=== PATIENT | male | born 1995 | race Caucasian/White ===

== ENCOUNTER 2020-06-28 11:58 | Day surgery (SDC) | payer OTHER ==
[2020-06-24 11:16] LABS: HEMATOCRIT 42.9 % (37.9-51.0); HEMOGLOBIN 14.6 g/dL (13.5-17.0); MEAN CORPUSCULAR HEMOGLOBIN 29.9 pg (27.0-33.4); MEAN CORPUSCULAR VOLUME 88 fl (80-97); PLATELET COUNT 240 10^3/uL (150-450); RED BLOOD COUNT 4.87 10^6/uL (4.35-5.55); RED CELL DISTRIBUTION WIDTH 13.1 % (11.5-14.0)
[2020-06-24 11:21] LABS: APPEARANCE,URINE CLEAR; BILIRUBIN,URINE NEGATIVE (NEGATIVE); COLOR,URINE STRAW; GLUCOSE, URINE NEGATIVE (NEGATIVE); KETONES,URINE NEGATIVE (NEGATIVE); LEUKOCYTE ESTERASE,URINE NEGATIVE (NEGATIVE); NITRITE,URINE NEGATIVE (NEGATIVE); PROTEIN,URINE NEGATIVE (NEGATIVE); URINE SPECIFIC GRAVITY 1.004; UROBILINOGEN,URINE NEGATIVE mg/dL (<2.0)
[2020-06-24 11:47] LABS: ANION GAP 8 (5-19); BLOOD UREA NITROGEN 11 mg/dL (7-20); CALCIUM 10.4 mg/dL (8.4-10.2); CARBON DIOXIDE 28 mmol/L (22-30); CHLORIDE 102 mmol/L (98-107); GLUCOSE 87 mg/dL (75-110); POTASSIUM 4.5 mmol/L (3.6-5.0)
[~2020-06-28 11:58] MED LIST: CEFAZOLIN 2 GM/D5W RTU 2 GM/50 ML RTUPB IV PRN; DEXAMETHASONE SOD PHOSPHATE INJ 4 MG/1 ML VIAL ONE; FENTANYL CITRATE INJ/PF 100 MCG/2 ML AMPUL ONE; GLYCOPYRROLATE 1 MG/5 ML VIAL ONE; LACTATED RINGERS 1000 ML IV PRN; LIDOCAINE 2% INJ-PF (20 MG/ML) 2 ML AMPUL ONE; MIDAZOLAM 2 MG/2 ML INJ ONE; NEOSTIGMINE METHYLSULFATE 10 MG/10 ML VIAL ONE; ONDANSETRON HCL INJ/PF 4 MG/2 ML SDV ONE; PROPOFOL INJ 200 MG/20 ML VIAL IV ONE; ROCURONIUM BROMIDE INJ 50 MG/5 ML VIAL IV ONE
[2020-06-28] MEDS ORDERED: ROPIVACAINE HCL 0.5% INJ/PF (5 MG/1 ML) 30 ML SDV ONE (12:22)
[2020-06-28] MEDS ORDERED: CEFAZOLIN 2 GM/D5W RTU 2 GM/50 ML RTUPB IV ONE (12:23)
[2020-06-28] MEDS ORDERED: EPINEPHRINE INJ/PF 1 MG/1 ML AMPULE ONE ×2 (12:51→13:52)
[2020-06-28] MEDS ORDERED: MIDAZOLAM 2 MG/2 ML INJ ONE (12:52)
[2020-06-28] MEDS ORDERED: DEXMEDETOMIDINE INJ 80 MCG/20 ML VIAL IV ONE (12:52)
[2020-06-28] MEDS ORDERED: EPHEDRINE SULFATE INJ 50 MG/1 ML AMPULE ONE (12:52)
[2020-06-28] MEDS ORDERED: FENTANYL CITRATE INJ/PF 100 MCG/2 ML AMPUL ONE (12:52)
[2020-06-28] MEDS ORDERED: PROPOFOL INJ 200 MG/20 ML VIAL IV ONE (12:53)
[2020-06-28] MEDS ORDERED: FENTANYL CITRATE INJ/PF 100 MCG/2 ML AMPUL IV PRN ×3 (14:31)
[2020-06-28] MEDS ORDERED: ONDANSETRON HCL INJ/PF 4 MG/2 ML SDV IV PRN ×2 (14:31→17:03)
[2020-06-28] MEDS ORDERED: DIPHENHYDRAMINE HCL 50 MG/ML VIAL IV PRN (14:31)
[2020-06-28] MEDS ORDERED: MORPHINE SULFATE 10 MG/ML INJ IV PRN (14:31)
[2020-06-28] MEDS ORDERED: PROMETHAZINE HCL INJ 25 MG/1 ML VIAL IV PRN ×2 (14:31)
[2020-06-28] MEDS ORDERED: MEPERIDINE HCL/PF INJ 25 MG/1 ML DISP.SYRIN IV PRN (14:31)
[2020-06-28] MEDS ORDERED: OXYCODONE-ACETAMINOPHEN 5-325 MG TABLET PO PRN (17:03)
--- NOTE | 2020-06-28 17:03 | Operative Report ---
Operative Report DATE OF SURGERY: 06/28/20 PREOPERATIVE DIAGNOSIS: Right shoulder labral tear POSTOPERATIVE DIAGNOSIS: Right shoulder anterior inferior to posterior superior labral tear OPERATION: Right shoulder arthroscopy. 1. anterior-inferior to posterior- superior labral tear with capsulorrhaphy. 2. right shoulder SLAP repair. SURGEON: CIARA PAINTING ANESTHESIA: GA COMPLICATIONS: None ESTIMATED BLOOD LOSS: Minimal PROCEDURE: Indication for above procedure: 24-year-old male who sustained multiple falls to his right shoulder and has kn own history of instability. Ultimately patient had MR arthrogram consistent with circumferential labral tear. At that point discussed treatment options including operative versus nonoperative intervention given patient's residual instability and failed conservative management decision was made to proceed with operative treatment. Procedure In Detail: Patient was seen and evaluated in the preoperative holding area. The RIGHT upper extremity was initialized and marked. Patient received 2g of Ancef IV for bacterial prophylaxis. Patient was taken back to the operative room where transferred to the operative table and placed under general anesthesia. Once they were adequately anesthetized patient placed in the lateral position. Cervical spine was placed in neutral position all bony prominences were padded including nonoperative upper extremity and bilateral lower extremity. A surgical team debriefing was performed ensuring all instrumentation was available, the surgical procedure was discussed with possible concerns reviewed. The upper extremity was prepped with ChloraPrep draped in a sterile fashion. A timeout was done identifying correct patient, procedure and extremity everyone in attendance agree with this and verbalized no concerns. Patient was placed in traction. A posterior portal was established. Via triangulation anterior portal was established superior to the biceps. There was notable synovitis throughout the anterior soft tissues. Full-thickness labral tear was noted from the 4 o'clock position to approximately the 7 o'clock position with complete disruption. There is no evidence of rotator cuff pathology. Subscapularis remained intact. There was a approximately 16% Hill-Sachs lesion along the posterior humerus however it was not engaging with range of motion. There is also tear of the superior labrum posterior to the biceps anchor. No evidence of tear within the biceps or bicipital groove. Anterior cannula was established. The labral insertion was debrided initially with the labral elevator then with the shaver on forward. The area was then wrapped to encourage labral healing. Arthroscope was then placed through the anterior cannula to visualize the posterior labrum. An accessory posterior lateral portal was established. Labral insertion was once again debrided and elevated. The glenoid edge was debrided with a rasp and shaver down to cancellus bone. The knotless suture tack guide was then placed along the glenoid face laterally at the 8 o'clock position. And secured into position. The tight-left suture lasso was utilized to obtain posterior labrum along with a portion of the capsule given posterior instability. The knotless suture tack was then utilized to shuttle FiberWire suture obtaining excellent fixation within the labrum which adequate lifted the capsule up to the glenoid face. This was then repeated placing a second anchor at the 7 o'clock position once again the tight-left suture lasso was utilized obtaining fixation of the labrum and associated capsule. At that point decision was made to transition to anterior fixation. Arthroscope was placed posteriorly. An additional transsubscap portal was established. A knotless suture tack anchor was placed at the 6 o'clock position. A tight-right suture lasso was utilized to obtain fixation of the labrum and capsule tissue this was then shuttled and secured to the modulus suture tack attention obtaining bumper effect along the anterior labrum. This was then repeated with an additional knotless suture tack anchor was placed at the 5 o'clock position once again capsular labral tissue was obtained with the tight-right suture lasso and secured to the knotless suture tack. All sutures were once again tensioned to obtain further security. They were then cut with the arthroscopic cutter. Attention then turned to the superior labrum. A anterior lateral portal was established. He was here anterior lateral portal a suture lock anchor was placed along the superior glenoid and secured. Suture lasso was utilized obtaining fixation through the superior labrum. This was then shuttled and secured to the knotless suture tack anchor. This provided good fixation of the superior labrum. The posterior, anterior and superior labrum was then checked with the probe and there was adequate stability. Incisions were closed with interrupted 3-0 nylon suture. Wound was dressed Xeroform, 4 x 4's and ABD. Patient was placed in a abduction brace. Sponge counts, instrument counts, needle counts were correct. Patient was then awoken from anesthesia. Transferred from the operating room table to the operating room stretcher. There was no intraoperative complications patient tolerated procedure well stable to PACU. Postop plan: Patient will follow in the office in 2 weeks for wound check. Will begin physical therapy as per labral repair 4 weeks postoperatively.
[2020-06-28 18:34] VITALS: BP 138/82
--- NOTE | 2020-06-29 14:32 | Discharge Summary ---
Discharge Summary (SDC) - Discharge Final Diagnosis: Right shoulder labral tear Date of Surgery: 06/28/20 Discharge Date: 06/28/20 Condition: Good Treatment or Instructions: Schedule Follow Up w/ Dr. Adriel Sandoval @ [facility] to be seen in 10-14 days or as scheduled [place]: [place]: [place]: May remove dressing on postop day #3, keep incision covered and dry. Cryocuff to shoulder May begin pendulum exercises along w/ hand, wrist and elbow range of motion 4x per day or as tolerated. May remove sling for hygiene purposes otherwise continue it at all times. Stool softener of choice when on pain medication. USE OF [id number] IBUPROFEN: Ibuprofen (Advil, Nuprin, Medipren, Motrin IB) is a medication for fever and pain control. In addition, it has anti- inflammatory effects which may be beneficial, especially in the treatment of injuries. It's best to take ibuprofen with food. Persons with ulcer disease or all ergy to aspirin should notify their physician of this before taking ibuprofen. Ibuprofen can be given every four to six hours, for a total of four doses daily. Age Pain or fever dose Antiinflammatory dose 6-8 yr 200 mg (1 tab) 200 mg (1 tab) 9-11 yr 200 mg (1 tab) 200-400 mg (1-2 tab) 11-14 yr 200-400 mg (1-2 tab) 400 mg (2 tab) 15-adult 400 mg (2 tab) 600 mg (3 tab) ORAL NARCOTIC MEDICATION: You have been given a prescription for pain control. This medication is a narcotic. It's best taken with food, as nausea can result if taken on an empty stomach. Don't operate machinery or drive within six hours of taking this medication. Do not combine this medicine with alcohol, or with any medication which can cause sedation (such as cold tablets or sleeping pills) unless you get permission from the physician. Narcotics tend to cause constipation. If possible, drink plenty of fluids and eat a diet high in fiber and fruits. Please be aware that prescription narcotics also have the potential for abuse. People become addicted to these medications because of the general sense of wellbeing that they induce. This feeling along with a significant reduction in tension, anxiety, and aggression provides a stimulating seductive quality to these drugs. Once your pain is under control, we encourage you to discard your unused narcotics. Prescriptions: Oxycodone HCl/Acetaminophen [Percocet 5-325 mg Tablet] 1 tab PO Q6 PRN #25 tab PRN Reason: Discharge Diet: As Tolerated Respiratory Treatments at Home: Deep Breathing/Coughing, Incentive Spirometer Discharge Activity: No Lifting Over 10 Pounds, No Lifting/Push/Pulling Report the Following to Your Physician Immediately: Fever over 101 Degrees, Unusual Bleeding, Redness, Swelling, Warmth, Increased Soreness
== END 2020-06-28 18:30 | disposition home or self-care (01) ==
LOC: OROUT 11:58
PROVIDERS: ATTEND Orthopaedic Surgery
DX: S43.431A Superior glenoid labrum lesion of right shoulder, initial encounter (principal); W19.XXXA Unspecified fall, initial encounter; G40.909 Epilepsy, unspecified, not intractable, without status epilepticus; Z20.828 Contact with and (suspected) exposure to other viral communicable diseases; Z79.899 Other long term (current) drug therapy; Z79.1 Long term (current) use of non-steroidal anti-inflammatories (NSAID); Z91.81 History of falling
CPT/HCPCS: 36415; 85027; 87635; 80048; 81001; 64415; 76942; 01630; 29806; 29807; C1713; A4649; J2795; J2250; J3490 ×3; J1100; J0171; J3010; J2710; J2405; J2704; J0690; C9803; 1630